=== PATIENT | female | born 1970 | race Caucasian/White ===

== ENCOUNTER → 2017-07-01 | Outpatient (CLI) | payer OTHER ==
[2017-07-01] MEDS: IOHEXOL 300 MG/ML 75 ML VIAL. IV ONE (09:40)
--- NOTE | 2017-07-01 16:45 | RAD ---
CT abdomen and pelvis with contrast Indication: [id number] Omni 300 75cc: Abdomen pain, changes in bowel habits, constipation. Hx: Appendectomy, . No priors.. . Technique: Intravenous contrast is given. Oral contrast was given. Comparison:None available Exposure: One or more of the following individualized dose reduction techniques were utilized for this examination: 1. Automated exposure control 2. Adjustment of the mA and/or kV according to patient size 3. Use of iterative reconstruction technique. FINDINGS: Lower thorax: Lung bases are clear. Pneumoperitoneum:No gross pneumoperitoneum. Liver: Unremarkable Spleen: Unremarkable Pancreas: Unremarkable Adrenals:No evidence of mass. Kidneys:Unremarkable Gallbladder: No calcified stone Aorta: Abdominal aorta is nonaneurysmal Lymph nodes: No significant enlargement GI tract: No bowel obstruction. No paracolonic inflammation. Appendix: Surgically removed. Ascites: No gross ascites. Urinary bladder: Not opacified, but no apparent abnormality. Probable small left ovarian cyst measuring 15 mm. Bones: No significant lesion or destructive process. IMPRESSION: No acute findings in the abdomen or pelvis. Probable small left ovarian cyst. Electronically signed by: Perry Johnson MD (07/01/2017 4:42 PM) [id number]
== END | disposition home or self-care (01) ==
LOC: CT 08:32
PROVIDERS: ATTEND Internal Medicine Gastroenterology
DX: R10.9 Unspecified abdominal pain (principal); K59.00 Constipation, unspecified
CPT/HCPCS: 74177